=== PATIENT | female | born 1990 | race Caucasian/White ===

== ENCOUNTER 2020-09-20 21:26 | Emergency (ER) | payer SELFPAY ==
[2020-09-20 21:42] VITALS: BP 129/78
[2020-09-20] MEDS ORDERED: DEXAMETHASONE SOD PHOS INJ 10 MG/1 ML VIAL IM ONE (21:52)
[2020-09-20] MEDS ORDERED: KETOROLAC TROMETHAMINE 60 MG/2 ML SDV IM ONE (21:52)
[2020-09-20] MEDS ORDERED: LIDOCAINE 5% (700 MG) TRANSDERMAL ADH..PATCH TP ONE (21:52)
--- NOTE | 2020-09-20 21:54 | ER Document Report ---
ED Medical Screen (RME) - General Chief Complaint: Back Pain Stated Complaint: SEVERE BACK PAIN AND LOWER BODY Time Seen by Provider: 09/20/20 21:47 Mode of Arrival: Ambulatory Information source: Patient Notes: 30-year-old female presented to ED for complaint of pain to the low back across the left buttocks down the left leg. She states it sosa at the top of the leg and then is numbness. Last menstrual period was . She states she does not smoke she drinks maybe once a week and does not use any illicit drugs. She states she does not have any past medical or surgical history. I have ordered her a lumbar x-ray Toradol IM, Decadron IM, and a Lidoderm patch. She will be seen by another provider. I have greeted and performed a rapid initial assessment of this patient. A comprehensive ED assessment and evaluation of the patient, analysis of test results and completion of medical decision making process will be conducted by an additional ED providers. TRAVEL OUTSIDE OF THE [place] IN LAST 30 DAYS: No - Related Data Allergies/Adverse Reactions: No Known Allergies Allergy (Verified 09/04/14 21:58) Past Medical History - Immunizations Immunizations up to date: Yes Hx Diphtheria, Pertussis, Tetanus Vaccination: Yes Physical Exam - Vital signs Vitals: Temp Pulse Resp BP Pulse Ox 98.5 F 91 18 129/78 H 98 09/20/20 21:39 09/20/20 21:39 09/20/20 21:39 09/20/20 21:39 09/20/20 21:39 Course - Vital Signs Vital signs: Temp Pulse Resp BP Pulse Ox 98.5 F 91 18 129/78 H 98 09/20/20 21:39 09/20/20 21:39 09/20/20 21:39 09/20/20 21:39 09/20/20 21:39
--- NOTE | 2020-09-20 22:42 | RADIOLOGY REPORT (SQ) ---
EXAM DESCRIPTION: XR LUMBAR SPINE ANTEROPOSTERIOR, LATERAL, AND OBLIQUES COMPLETED DATE/TME: 09/20/2020 22:09 CLINICAL HISTORY: 30 years, Female, low back pain COMPARISON: None. NUMBER OF VIEWS: 5 TECHNIQUE: 5 view lumbar spine LIMITATIONS: None. FINDINGS: 5 lumbar type vertebral bodies. Height and alignment is preserved. The disc spaces are maintained. There are no pars defects. Sacroiliac joints are preserved IMPRESSION: Unremarkable lumbar spine copyright 2010 [employer]- All Rights Reserved
--- NOTE | 2020-09-21 00:08 | ER Document Report ---
HPI - HPI Patient complains to provider of: back pain Time Seen by Provider: 09/20/20 21:47 Pain Level: 4 Context: 30-year-old female presents to the emergency room complaining of worsening low back pain that radiates down her left leg. States that started about a week ago and resolved within 2 to 3 days without any intervention. States symptoms returned 2 days ago. She denies any trauma or injury. She denies any loss control of her bowels or bladder. No saddle anesthesia. No red flags. No medications for symptoms. No history of herniated or bulging disc. No urinary symptoms. Denies any chance of . Associated Symptoms: None Exacerbated by: Movement Relieved by: Denies Similar symptoms previously: No Recently seen / treated by doctor: No - ROS Systems Reviewed and Negative: Yes All other systems reviewed and negative - CONSTITUTIONAL Constitutional: DENIES: Fever - NEURO Neurology: DENIES: Weakness - GASTROINTESTINAL Gastrointestinal: DENIES: Abdominal Pain - URINARY Urinary: DENIES: Dysuria, Urgency, Frequency - REPRODUCTIVE Reproductive: DENIES: : - MUSCULOSKELETAL Musculoskeletal: REPORTS: Back Pain - DERM Skin Color: Normal Skin Problems: None Past Medical History - General Information source: Patient - Social History Smoking Status: Never Smoker Chew tobacco use (# tins/day): No Frequency of alcohol use: None Drug Abuse: None Family History: Reviewed & Not Pertinent - Immunizations Immunizations up to date: Yes Hx Diphtheria, Pertussis, Tetanus Vaccination: Yes Vertical Provider Document - CONSTITUTIONAL Agree With Documented VS: Yes Exam Limitations: No Limitations General Appearance: Mild Distress - INFECTION CONTROL TRAVEL OUTSIDE OF THE [place] IN LAST 30 DAYS: No - HEENT HEENT: Atraumatic, Normocephalic - NECK Neck: Normal Inspection, Supple - RESPIRATORY Respiratory: Breath Sounds Normal, No Respiratory Distress - CARDIOVASCULAR Cardiovascular: Regular Rate, Regular Rhythm, No Murmur - BACK Back: Abnormal Inspection - Tenderness on palpation from L4-S1. There is tenderness of the left sciatic notch. Negative straight leg raising bilaterally. No deformities, no step-offs.. negative: CVA Tenderness-Right, CVA Tenderness-Left - MUSCULOSKELETAL/EXTREMETIES Musculoskeletal/Extremeties: FROM, Non-Tender - NEURO Level of Consciousness: Awake, Alert, Appropriate Motor/Sensory: No Motor Deficit, No Sensory Deficit Notes: Ambulatory with steady gait. Neurovascularly intact. - DERM Integumentary: Warm, Dry, No Rash Course - Re-evaluation Re-evalutation: 09/21/20 00:04 Patient is resting comfortably with decreased pain. She is ambulatory with a steady gait. She is neurovascularly intact. Negative straight leg raising bilaterally. Reviewed x-ray results with patient. Counseled on importance of outpatient follow-up with a orthopedist if not improving in 2 to 3 days. On- call physician was provided. Patient was given strict return to the emergency room guidelines. Return for any new or worsening symptoms. All questions were answered. Patient verbalized understanding and agrees with plan of care. 09/21/20 00:13 - Vital Signs Vital signs: Temp Pulse Resp BP Pulse Ox 98.5 F 91 18 129/78 H 98 09/20/20 21:39 09/20/20 21:39 09/20/20 21:39 09/20/20 21:39 09/20/20 21:39 - Laboratory Results Critical Laboratory Results Reviewed: No Critical Results - Radiology Results Critical Radiology Results Reviewed: No Critical Results Discharge - Discharge Clinical Impression: Back pain with left-sided sciatica Condition: Stable Disposition: HOME, SELF-CARE Instructions: Low Back Pain ([facility]), Sciatica ([facility]) Additional Instructions: You have been seen in the Emergency Department (ED) today for back pain. Your workup and exam have not shown any acute abnormalities and you are likely suffering from muscle strain or possible problems with your discs, but there is no treatment that will fix your symptoms at this time. Please take the prednisone and Motrin that has been prescribed as directed. You should also purchase a local lidocaine cream such as "aspercreme with lidocaine" and use per bottle instructions to the affected area. Apply heat to the area as often as you are able. Continue to keep active and avoid prolonged periods of bed rest. Please follow up with your doctor as soon as possible regarding today's ED visit and your back pain. Return to the ED for worsening back pain, fever, weakness or numbness of either leg, or if you develop either (1) an inability to urinate or have bowel movements, or (2) loss of your ability to control your bathroom functions (if you start having "accidents"), or if you develop other new symptoms that concern you.concern you. Prescriptions: Prednisone [Deltasone 20 mg Tablet] See Protocol PO DAILY 9 Days #18 tablet Ibuprofen [Motrin 600 Mg Tablet] 600 mg PO TID #15 tablet Referrals: JAJA TORRES JR, [ACTIVE PROVISIONAL STAFF] - Follow up as needed
== END 2020-09-21 00:22 | disposition home or self-care (01) ==
LOC: ER 21:26
DX: M54.32 Sciatica, left side (principal); M54.9 Dorsalgia, unspecified; M54.5 Low back pain; M79.605 Pain in left leg
CPT/HCPCS: 99284; 96372; 72110; J1885; J1100